=== PATIENT | female | born 1990 | race African-American/Black ===

== ENCOUNTER 2017-01-09 07:59 | Emergency (ER) | payer BC ==
[2017-01-09 07:24] LABS: INFLUENZA A SCREEN POSITIVE (NEGATIVE); INFLUENZA B SCREEN NEGATIVE (NEGATIVE)
== END 2017-01-09 08:05 | disposition home or self-care (01) ==
LOC: ER 07:59
PROVIDERS: Emergency Medicine
DX: J10.1 Influenza due to other identified influenza virus with other respiratory manifestations (principal); Z88.5 Allergy status to narcotic agent; Z88.1 Allergy status to other antibiotic agents
CPT/HCPCS: 87804; 99283; A9270-GY